=== PATIENT | female | born 1995 | race Caucasian/White ===

== ENCOUNTER 2017-03-05 13:00 | Emergency (ER) | payer BC, OTHER ==
[2017-03-05 13:12] VITALS: BP 160/78
[2017-03-05] MEDS ORDERED: Albuterol/Ipratropium 3.0-0.5 MG/3 ML Neb Soln NEB ONE (13:24)
--- NOTE | 2017-03-05 14:02 | EDM.PDOC ---
ED HPI GENERAL MEDICAL PROBLEM - General Chief Complaint: Respiratory Problem Stated Complaint: POSSIBLE PNEUMONIA Time Seen by Provider: 03/05/17 13:15 Source of Information: Reports: Patient History Limitations: Reports: No Limitations - History of Present Illness INITIAL COMMENTS - FREE TEXT/NARRATIVE: HISTORY AND PHYSICAL: History of present illness: [Comes to the emergency room complaining of 3 days of dry hacking cough and generalized malaise. She has been around others who have recently been diagnosed with pneumonia. She is concerned that she may too have pneumonia and would like to be evaluated. She denies fever, states that she has had chills. No earache sore throat or runny nose. No wheezing has been noted. She is not coughing up any sputum. Generalized fatigue and malaise. No abdominal pain, nausea or vomiting. She works as a [employer] and requests a work note for being seen in the emergency room today. Smokes regularly.] Review of systems: As per history of present illness and below otherwise all systems reviewed and negative. Past medical history: As per history of present illness and as reviewed below otherwise noncontributory. Surgical history: As per history of present illness and as reviewed below otherwise noncontributory. Social history: No reported history of drug or alcohol abuse. Family history: As per history of present illness and as reviewed below otherwise noncontributory. Physical exam: HEENT: Atraumatic, normocephalic. TMs are pearly richter and without effusion. Nares are clear. Cobblestone appearance to posterior oropharynx. No tonsillar swelling erythema or exudate. Face is nontender with palpation. Neck supple, no lymphadenopathy. Lungs: Clear to auscultation, breath sounds equal bilaterally. No wheezing, crackles or rales. Heart: S1S2, regular rate and rhythm. Abdomen: Soft, nondistended, nontender. Pelvis: Stable nontender. Genitourinary: Deferred. Rectal: Deferred. Extremities: Atraumatic. Neurovascular unremarkable. Neuro: Awake, alert, oriented. Motor and sensory unremarkable throughout. Exam nonfocal. Therapeutics: [DuoNeb] Impression: [Viral bronchitis] Plan: [Discussed with patient that her symptoms are viral in nature. Recommend rest push fluids. Robitussin or Delsym cough syrup as needed. She is given a prescription for albuterol inhaler sig 1 puff every 4-6 hours as needed for shortness of breath cough or wheezing. She is in agreement with today's plan.] Definitive disposition and diagnosis as appropriate pending reevaluation and review of above. 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 - Infectious Disease History Infectious Disease History: Reports: Chicken Pox - Past Surgical History HEENT Surgical History: Reports: Other (See Below) Other HEENT Surgeries/Procedures: wisdom tooth removed Cardiovascular Surgical History: Reports: None Respiratory Surgical History: Reports: None GI Surgical History: Reports: None Musculoskeletal Surgical History: Reports: None Social & Family History - Family History Cardiac: Reports: Hypertension, [place] Neurological: Reports: CVA Psychiatric: Reports: Anxiety, Depression, OCD, Suicide Attempt, Other (See Below) Other Psychiatric Family History: etoh and drug addictions Endocrine/Metabolic: Reports: Diabetes, type II - Tobacco Use Smoking Status *Q: Current Every Day Smoker Years of Tobacco use: 5 Packs/Tins Daily: 0.5 - Caffeine Use Caffeine Use: Reports: Coffee - Alcohol Use Days Per Week of Alcohol Use: 4 Number of Drinks Per Day: 6 Total Drinks Per Week: 24 - Recreational Drug Use Recreational Drug Use: No ED ROS GENERAL - Review of Systems Review Of Systems: ROS reveals no pertinent complaints other than HPI. ED EXAM, GENERAL - Physical Exam Exam: See Below Course - Vital Signs Last Recorded V/S: Last Vital Signs Temp 97.5 F 03/05/17 13:05 Pulse 92 03/05/17 13:05 Resp 20 03/05/17 13:05 BP 160/78 H 03/05/17 13:05 Pulse Ox 98 03/05/17 13:05 - Orders/Labs/Meds Orders: Active Orders 24 hr Category Date Time Status RT Aerosol Therapy [RC] ASDIRECTED Care 03/05/17 13:24 Active Meds: Medications Discontinued Medications Generic Name Dose Route Start Last Admin Trade Name Jese PRN Reason Stop Dose Admin Albuterol/Ipratropium 3 ml 03/05/17 13:24 03/05/17 13:28 Duoneb 3.0-0.5 Mg/3 Ml NEB 03/05/17 13:25 3 ml ONETIME ONE Administration Departure - Departure Time of Disposition: 14:15 Disposition: Home, Self-Care 01 Condition: Good Clinical Impression: Viral bronchitis - Discharge Information Instructions: Acute Bronchitis, [id number] Referrals: PCP,None [Primary Care Provider] - Forms: ED Department Discharge Additional Instructions: The following information is given to patients seen in the emergency department who are being discharged to home. This information is to outline your options for follow-up care. We provide all patients seen in our emergency department with a follow-up referral. The need for follow-up, as well as the timing and circumstances, are variable depending upon the specifics of your emergency department visit. If you don't have a primary care physician on staff, we will provide you with a referral. We always advise you to contact your personal physician following an emergency department visit to inform them of the circumstance of the visit and for follow-up with them and/or the need for any referrals to a consulting specialist. The emergency department will also refer you to a specialist when appropriate. This referral assures that you have the opportunity for follow-up care with a specialist. All of these measure are taken in an effort to provide you with optimal care, which includes your follow-up. Under all circumstances we always encourage you to contact your private physician who remains a resource for coordinating your care. When calling for follow-up care, please make the office aware that this follow-up is from your recent emergency room visit. If for any reason you are refused follow-up, please contact the [facility] emergency department at and asked to speak to the emergency department charge nurse. [facility] [address] [place] [id number] Follow-up with your primary care provider at the clinic listed above early next week. Use inhaler as instructed. Take Robitussin or Delsym as needed. Return to ER as needed as discussed. - My Orders Last 24 Hours: My Active Orders 03/05/17 13:24 RT Aerosol Therapy [RC] ASDIRECTED - Assessment/Plan Last 24 Hours: My Active Orders 03/05/17 13:24 RT Aerosol Therapy [RC] ASDIRECTED
== END 2017-03-05 14:25 | disposition home or self-care (01) ==
LOC: MW.ED 13:00
DX: J20.8 Acute bronchitis due to other specified organisms (principal); B97.89 Other viral agents as the cause of diseases classified elsewhere; F41.9 Anxiety disorder, unspecified; F17.210 Nicotine dependence, cigarettes, uncomplicated; Z79.899 Other long term (current) drug therapy; F32.9 Major depressive disorder, single episode, unspecified
CPT/HCPCS: 94664; 99283; 99283-25

== ENCOUNTER 2017-05-03 20:58 | Emergency (ER) | payer BC ==
[2017-05-03] MEDS ORDERED: Sodium Chloride 0.9% 1,000 ML IV ONE (21:21)
--- NOTE | 2017-05-03 21:28 | EDM.PDOC ---
ED HPI GENERAL MEDICAL PROBLEM - General Chief Complaint: RAG GRADER Problem Stated Complaint: PT BLEEDING Time Seen by Provider: 05/03/17 21:10 Source of Information: Reports: Patient History Limitations: Reports: No Limitations - History of Present Illness INITIAL COMMENTS - FREE TEXT/NARRATIVE: History of present illness: [21-year-old female comes in complaining of vaginal bleeding status post intercourse. Patient indicates that just a few minutes of intercourse with her customary sexual partner/with friend that she started having profuse vaginal bleeding that initially was painless but now is very crampy. Patient does not believe that she could be as she is on the control pill and she just finished her cycle approximately 2 weeks ago. Patient denies anything unusual with intercourse and any actual pain with intercourse just initially the profuse bleeding. Patient denies anything unusual with the sex, denies any instrumentation,] Review of systems: As per history of present illness and below otherwise all systems reviewed and negative. Past medical history: As per history of present illness and as reviewed below otherwise noncontributory. Surgical history: As per history of present illness and as reviewed below otherwise noncontributory. Social history: No reported history of drug or alcohol abuse. Family history: As per history of present illness and as reviewed below otherwise noncontributory. Physical exam: HEENT: Atraumatic, normocephalic, pupils reactive, negative for conjunctival pallor or scleral icterus, mucous membranes moist, throat clear, neck supple, nontender, trachea midline. Lungs: Clear to auscultation, breath sounds equal bilaterally, chest nontender. Heart: S1S2, regular, negative for clicks, rubs, or JVD. Abdomen: Soft, nondistended, nontender. Negative for masses or hepatosplenomegaly. Negative for costovertebral tenderness. Pelvis: Stable nontender. Genitourinary: Pelvic exam revealed an abraded area on the floor of the vaginal vault. Cervix was pink and shiny without any signs of laceration or bloody discharge from the os Rectal: Deferred. Extremities: Atraumatic, negative for cords or calf pain. Neurovascular unremarkable. Neuro: Awake, alert, oriented. Cranial nerves II through XII unremarkable. Cerebellum unremarkable. Motor and sensory unremarkable throughout. Exam nonfocal. Diagnostics: [CBC, CMP, UA, hCG] Therapeutics: [] Impression: [IV fluid] Plan: [Pelvic rest follow-up with RAG GRADER] Definitive disposition and diagnosis as appropriate pending reevaluation and review of above. abdomen Pain Score (Numeric/FACES): 7 - Related Data Allergies Allergy/AdvReac Type Severity Reaction Status Date / Time No Known Allergies Allergy Verified 03/05/17 13:09 Home Meds: Home Meds Sertraline [Zoloft] 100 mg PO DAILY 03/05/17 [History] Past Medical History HEENT History: Reports: None Cardiovascular History: Reports: None Respiratory History: Reports: None Gastrointestinal History: Reports: None Genitourinary History: Reports: None RAG GRADER History: Reports: None Musculoskeletal History: Reports: None Neurological History: Reports: None Psychiatric History: Reports: Anxiety, Depression, Suicide Attempt, Suicidal Ideation Endocrine/Metabolic History: Reports: None Dermatologic History: Reports: None, Other (See Below) Other Dermatologic History: scars from cutting self, right hip. - Infectious Disease History Infectious Disease History: Reports: Chicken Pox - Past Surgical History HEENT Surgical History: Reports: Other (See Below) Other HEENT Surgeries/Procedures: wisdom tooth removed Cardiovascular Surgical History: Reports: None Respiratory Surgical History: Reports: None GI Surgical History: Reports: None Musculoskeletal Surgical History: Reports: None Social & Family History - Family History Cardiac: Reports: Hypertension, [place] Neurological: Reports: CVA Psychiatric: Reports: Anxiety, Depression, OCD, Suicide Attempt, Other (See Below) Other Psychiatric Family History: etoh and drug addictions Endocrine/Metabolic: Reports: Diabetes, type II - Tobacco Use Smoking Status *Q: Current Every Day Smoker Years of Tobacco use: 5 Packs/Tins Daily: 0.5 - Caffeine Use Caffeine Use: Reports: Coffee - Alcohol Use Days Per Week of Alcohol Use: 4 Number of Drinks Per Day: 6 Total Drinks Per Week: 24 - Recreational Drug Use Recreational Drug Use: No ED ROS GENERAL - Review of Systems Review Of Systems: See Below (History of present illness) ED EXAM, GENERAL - Physical Exam Exam: See Below (History of present illness) Course - Vital Signs Last Recorded V/S: Last Vital Signs Temp 36.5 C 05/03/17 20:58 Pulse 121 H 05/03/17 20:58 Resp 18 05/03/17 20:58 BP 151/88 H 05/03/17 20:58 Pulse Ox 95 05/03/17 20:58 - Orders/Labs/Meds Labs: Laboratory Tests 05/03/17 05/03/17 05/03/17 Range/Units 21:35 21:35 21:50 WBC 7.41 (4.0-11.0) K/uL RBC 4.89 (4.30-5.90) M/uL Hgb 15.2 (12.0-16.0) g/dL Hct 44.6 (36.0-46.0) % MCV 91.2 (80.0-98.0) fL MCH 31.1 (27.0-32.0) pg MCHC 34.1 (31.0-37.0) g/dL RDW Std Deviation 47.3 (28.0-62.0) fl RDW Coeff of Sharon 14 (11.0-15.0) % Plt Count 323 (150-400) K/uL MPV 8.70 (7.40-12.00) fL Neut % (Auto) 57.9 (48.0-80.0) % Lymph % (Auto) 31.4 (16.0-40.0) % [place] % (Auto) 8.4 (0.0-15.0) % Eos % (Auto) 1.1 (0.0-7.0) % Baso % (Auto) 1.2 (0.0-1.5) % Neut # (Auto) 4.3 (1.4-5.7) K/uL Lymph # (Auto) 2.3 (0.6-2.4) K/uL [place] # (Auto) 0.6 (0.0-0.8) K/uL Eos # (Auto) 0.1 (0.0-0.7) K/uL Baso # (Auto) 0.1 (0.0-0.1) K/uL Nucleated RBC % 0.0 /100WBC Nucleated RBCs # 0 K/uL Sodium 143 (136-146) mmol/L Potassium 3.9 (3.5-5.1) mmol/L Chloride 106 (98-110) mmol/L Carbon Dioxide 24 (21-31) mmol/L BUN 8 (6.0-23.0) mg/dL Creatinine 0.6 (0.6-1.5) mg/dL Est Cr Clr Drug Dosing TNP Estimated GFR (MDRD) > 60.0 ml/min Glucose 90 (60-110) mg/dL Calcium 9.4 (8.8-10.8) mg/dL Total Bilirubin 0.3 (0.1-1.5) mg/dL AST 87 H (5-40) IU/L ALT 87 H (8-54) IU/L Alkaline Phosphatase 109 (40-150) Total Protein 7.7 (6.0-8.0) g/dL Albumin 4.3 (3.5-5.0) g/dL Globulin 3.4 (2.0-3.5) g/dL Albumin/Globulin Ratio 1.3 (1.3-2.8) HCG, Quant < 1.2 mIU/mL Urine Color YELLOW Urine Appearance HAZY Urine pH 7.5 (5.0-8.0) Ur Specific [place] 1.010 (1.001-1.035) Urine Protein NEGATIVE (NEGATIVE) mg/dL Urine Glucose (UA) NEGATIVE (NEGATIVE) mg/dL Urine Ketones NEGATIVE (NEGATIVE) mg/dL Urine Occult Blood LARGE H (NEGATIVE) Urine Nitrite NEGATIVE (NEGATIVE) Urine Bilirubin NEGATIVE (NEGATIVE) Urine Urobilinogen 0.2 (<2.0) EU/dL Ur Leukocyte Esterase NEGATIVE (NEGATIVE) Urine RBC TOO NUMBEROUS TO CT H (0-2/HPF) Urine WBC 0-1 (0-5/HPF) Ur Epithelial Cells FEW (NONE-FEW) Urine Bacteria FEW (NEGATIVE) Meds: Medications Discontinued Medications Generic Name Dose Route Start Last Admin Trade Name Freq PRN Reason Stop Dose Admin Sodium Chloride 1,000 mls @ 999 mls/hr 05/03/17 21:21 05/03/17 21:54 Normal Saline IV 05/03/17 22:21 999 mls/hr STAT ONE Administration Departure - Departure Time of Disposition: 22:36 Disposition: Home, Self-Care 01 Condition: Good Clinical Impression: Vaginal discharge - Discharge Information Referrals: PCP,None [Primary Care Provider] - Forms: ED Department Discharge Additional Instructions: The following information is given to patients seen in the emergency department who are being discharged to home. This information is to outline your options for follow-up care. We provide all patients seen in our emergency department with a follow-up referral. The need for follow-up, as well as the timing and circumstances, are variable depending upon the specifics of your emergency department visit. If you don't have a primary care physician on staff, we will provide you with a referral. We always advise you to contact your personal physician following an emergency department visit to inform them of the circumstance of the visit and for follow-up with them and/or the need for any referrals to a consulting specialist. The emergency department will also refer you to a specialist when appropriate. This referral assures that you have the opportunity for follow-up care with a specialist. All of these measure are taken in an effort to provide you with optimal care, which includes your follow-up. Under all circumstances we always encourage you to contact your private physician who remains a resource for coordinating your care. When calling for follow-up care, please make the office aware that this follow-up is from your recent emergency room visit. If for any reason you are refused follow-up, please contact the [facility] Emergency Department at and asked to speak to the emergency department charge nurse. As discussed with you your labs were within normal limits the return of signs of infection or significant blood loss of the concerning nature. As discussed treat the vaginal bleeding like a menstrual cycle for the next 3-5 days wearing a pad having pelvic rest avoid sexual activity for 7-10 days All up with a primary care provider in 2-3 days or an RAG GRADER in 5-7 Return to ED as needed as discussed
[2017-05-03 21:29] VITALS: BP 151/88
[2017-05-03 22:06] LABS: CHLORIDE,CL 106 mmol/L (98-110); SODIUM,NA 143 mmol/L (136-146)
== END 2017-05-03 22:52 | disposition home or self-care (01) ==
LOC: MW.ED 20:58
DX: N89.8 Other specified noninflammatory disorders of vagina (principal); F17.210 Nicotine dependence, cigarettes, uncomplicated; Z79.899 Other long term (current) drug therapy
CPT/HCPCS: 36415; 80053; 81001; 84702; 85025; 96360; 99284; J7040

== ENCOUNTER 2019-01-16 23:46 | Emergency (ER) | payer BC, OTHER ==
--- NOTE | 2019-01-17 00:22 | EDM.PDOC ---
<Lonny Sam - Last Filed: 01/17/19 00:36> ED HPI GENERAL MEDICAL PROBLEM - General Chief Complaint: Headache Stated Complaint: PT HAS MIGRAINE Time Seen by Provider: 01/16/19 23:55 - History of Present Illness INITIAL COMMENTS - FREE TEXT/NARRATIVE: HISTORY AND PHYSICAL: History of present illness: 23-year-old female with a past history of migraine headaches presents to the emergency department this evening for the evaluation of a new migraine headache. The patient first developed her symptoms 5 hours ago in which she describes as a 7/10 sharp constant pain to her forehead. She has attempted the over the counter Excedrin without relief. The patient reports photophobia & nausea but denies vomiting. Furthermore the patient denies systemic illness such as fevers chills or night sweats. Patient has had no recent trauma. Per patient report, she requires at least 3 visits per year to the emergency department for the treatment of migraine headache. She currently does not have a primary care provider nor is she on any preventative or abortive migraine therapy. Review of systems: As per history of present illness and below otherwise all systems reviewed and negative. Past medical history: As per history of present illness and as reviewed below otherwise noncontributory. Surgical history: As per history of present illness and as reviewed below otherwise noncontributory. Social history: No reported history of drug or alcohol abuse. Family history: As per history of present illness and as reviewed below otherwise noncontributory. Physical exam: Constitutional: Well-developed and well-nourished, nontoxic-appearing HEENT: Atraumatic, normocephalic, pupils reactive, negative for conjunctival pallor or scleral icterus, mucous membranes moist, throat clear, neck supple, nontender, trachea midline. Lungs: Clear to auscultation, breath sounds equal bilaterally, chest nontender. Heart: S1S2, regular, negative for clicks, rubs, or JVD. Abdomen: Soft, nondistended, nontender. Negative for masses or hepatosplenomegaly. Negative for costovertebral tenderness. Pelvis: Deferred. Genitourinary: Deferred. Rectal: Deferred. Extremities: Atraumatic, negative for cords or calf pain. Neurovascular unremarkable. Neuro: Awake, alert, oriented. Cranial nerves II through XII unremarkable. Cerebellum unremarkable. Motor and sensory unremarkable throughout. Exam nonfocal. Diagnostics: None Therapeutics: 1L 0.9 NS 6 mg sumatriptan subcutaneous Zofran Impression: Migraine Headache Plan: The patients symptoms improved with the above therapeutics. She will be discharged home and is to establish care with PCP. The patient is in agreement to the plan of care, her questions were answered. Definitive disposition and diagnosis as appropriate pending reevaluation and review of above. 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 - Infectious Disease History Infectious Disease History: Reports: Chicken Pox - Past Surgical History HEENT Surgical History: Reports: Oral Surgery, Tonsillectomy, Other (See Below) Other HEENT Surgeries/Procedures: wisdom tooth removed Cardiovascular Surgical History: Reports: None Respiratory Surgical History: Reports: None GI Surgical History: Reports: None Musculoskeletal Surgical History: Reports: None Social & Family History - Family History Family Medical History: Noncontributory Cardiac: Reports: Hypertension, [place] Neurological: Reports: CVA Psychiatric: Reports: Anxiety, Depression, OCD, Suicide Attempt, Other (See Below) Other Psychiatric Family History: etoh and drug addictions Endocrine/Metabolic: Reports: Diabetes, type II - Tobacco Use Smoking Status *Q: Never Smoker - Caffeine Use Caffeine Use: Reports: Coffee - Recreational Drug Use Recreational Drug Use: No Course - Vital Signs Last Recorded V/S: Last Vital Signs Temp 36.2 C 01/16/19 23:50 Pulse 61 01/17/19 01:23 Resp 15 01/17/19 01:23 BP 131/88 01/17/19 01:23 Pulse Ox 99 01/17/19 01:23 - Orders/Labs/Meds Meds: Medications Discontinued Medications Generic Name Dose Route Start Last Admin Trade Name Jese PRN Reason Stop Dose Admin Sodium Chloride 1,000 mls @ 999 mls/hr 01/17/19 00:30 01/17/19 00:23 Normal Saline IV 999 mls/hr ASDIRECTED NARCISA Administration Sumatriptan Succinate 6 mg 01/17/19 00:29 01/17/19 00:34 Imitrex SUBCUT 01/17/19 00:30 6 mg ONETIME ONE Administration Departure - Departure Disposition: Home, Self-Care 01 Clinical Impression: Migraine - Discharge Information Instructions: Recurrent Migraine Headache, [id number] Referrals: PCP,None [Primary Care Provider] - Forms: ED Department Discharge Additional Instructions: The following information is given to patients seen in the emergency department who are being discharged to home. This information is to outline your options for follow-up care. We provide all patients seen in our emergency department with a follow-up referral. The need for follow-up, as well as the timing and circumstances, are variable depending upon the specifics of your emergency department visit. If you don't have a primary care physician on staff, we will provide you with a referral. We always advise you to contact your personal physician following an emergency department visit to inform them of the circumstance of the visit and for follow-up with them and/or the need for any referrals to a consulting specialist. The emergency department will also refer you to a specialist when appropriate. This referral assures that you have the opportunity for followup care with a specialist. All of these measure are taken in an effort to provide you with optimal care, which includes your followup. Under all circumstances we always encourage you to contact your private physician who remains a resource for coordinating your care. When calling for followup care, please make the office aware that this follow-up is from your recent emergency room visit. If for any reason you are refused follow-up, please contact the [facility] emergency department at and asked to speak to the emergency department charge nurse. [facility] [address] [place] [id number] Follow-up primary care call to schedule appointment above return as needed as discussed <Luís Ward - Last Filed: 01/17/19 06:26> ED ROS GENERAL - Review of Systems Review Of Systems: ROS reveals no pertinent complaints other than HPI. - Physical Exam Exam: See Below Course - Vital Signs Text/Narrative:: History and physical as below patient's emergency department course has been unremarkable she has improvement status post IV fluid Zofran and sumatriptan she 'll be discharged home with diagnosis of migraine headache she is to secure follow-up with primary care physician return as needed as discussed Departure - Departure Time of Disposition: 00:49 Condition: Good
[2019-01-17] MEDS ORDERED: SUMAtriptan 6 MG/0.5 ML SDV SUBCUT ONE (00:29)
[2019-01-17] MEDS ORDERED: Sodium Chloride 0.9% 1,000 ML IV SCH (00:30)
[2019-01-17 01:46] VITALS: BP 131/88; PULSE 61
== END 2019-01-17 01:24 | disposition home or self-care (01) ==
LOC: MW.ED 23:46
DX: G43.909 Migraine, unspecified, not intractable, without status migrainosus (principal); F41.9 Anxiety disorder, unspecified; F32.9 Major depressive disorder, single episode, unspecified; Z79.899 Other long term (current) drug therapy
CPT/HCPCS: 96360; 96372; 99283; J3030; J7040

== ENCOUNTER 2019-03-13 12:32 | Emergency (ER) | payer BC, OTHER ==
--- NOTE | 2019-03-13 14:06 | EDM.PDOC ---
ED HPI GENERAL MEDICAL PROBLEM - General Chief Complaint: General Stated Complaint: VOMITING, CHEST COLD Time Seen by Provider: 03/13/19 12:51 Source of Information: Reports: Patient History Limitations: Reports: No Limitations - History of Present Illness INITIAL COMMENTS - FREE TEXT/NARRATIVE: Presents reporting a three-day history of shortness of breath with chest pain, fevers, sore throat, runny nose, headache, nausea, cough and body aches. 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 She is on reliable control. Chest Pain Score (Numeric/FACES): 6 - Related Data Allergies Allergy/AdvReac Type Severity Reaction Status Date / Time No Known Allergies Allergy Verified 01/16/19 23:58 Home Meds: Home Meds Sertraline [Zoloft] 50 mg PO DAILY 03/05/17 [History] Codeine Phosphate/Guaifenesin [Guaifen-Codeine 100-10 mg/5 ml] 10 ml PO Q6HR PRN #240 liquid 03/13/19 [Rx] Diclofenac Sodium [Voltaren] 75 mg PO BIDMEALS #14 tab.ec 03/13/19 [Rx] Levonorgestrel-Ethin Estradiol [Marlissa-28 Tablet] 1 each PO DAILY 03/13/19 [ History] Past Medical History HEENT History: Reports: None Cardiovascular History: Reports: None Respiratory History: Reports: None Gastrointestinal History: Reports: None Genitourinary History: Reports: None 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 - Infectious Disease History Infectious Disease History: Reports: Chicken Pox, Shingles - Past Surgical History Head Surgeries/Procedures: Reports: None HEENT Surgical History: Reports: Oral Surgery, Tonsillectomy, Other (See Below) Other HEENT Surgeries/Procedures: wisdom tooth removed Cardiovascular Surgical History: Reports: None Respiratory Surgical History: Reports: None GI Surgical History: Reports: None Musculoskeletal Surgical History: Reports: None Social & Family History - Family History Family Medical History: Noncontributory Cardiac: Reports: Hypertension, [place] Neurological: Reports: CVA Psychiatric: Reports: Anxiety, Depression, OCD, Suicide Attempt, Other (See Below) Other Psychiatric Family History: etoh and drug addictions Endocrine/Metabolic: Reports: Diabetes, type II - Tobacco Use Smoking Status *Q: Current Every Day Smoker Years of Tobacco use: 5 Packs/Tins Daily: 0.2 - Caffeine Use Caffeine Use: Reports: Coffee - Recreational Drug Use Recreational Drug Use: No ED ROS GENERAL - Review of Systems Review Of Systems: ROS reveals no pertinent complaints other than HPI. ED EXAM, GENERAL - Physical Exam Exam: See Below Exam Limited By: No Limitations General Appearance: Alert, No Apparent Distress Ears: Normal External Exam, Normal Canal, Normal TMs Nose: Normal Inspection Throat/Mouth: Normal Inspection, Normal Oropharynx Head: Atraumatic, Normocephalic Neck: Normal Inspection, Supple. No: Lymphadenopathy (L), Lymphadenopathy (R) Respiratory/Chest: No Respiratory Distress, Lungs Clear, Normal Breath Sounds Cardiovascular: Normal Peripheral Pulses, Regular Rate, Rhythm, No Murmur Back Exam: Normal Inspection Extremities: Normal Inspection Neurological: Alert, Oriented Psychiatric: Normal Affect, Normal Mood Skin Exam: Warm, Dry, Intact, Normal Color, No Rash Lymphatic: No Adenopathy Course - Vital Signs Last Recorded V/S: Last Vital Signs Temp 36.6 C 03/13/19 12:41 Pulse 70 03/13/19 12:41 Resp BP 134/69 03/13/19 12:41 Pulse Ox 97 03/13/19 12:41 - Orders/Labs/Meds Orders: Active Orders 24 hr Category Date Time Status INFLUENZA A+B AG SCREEN [RM] Stat Lab 03/13/19 13:13 Received Departure - Departure Time of Disposition: 14:06 Disposition: Home, Self-Care 01 Condition: Good Clinical Impression: URI (upper respiratory infection) Qualifiers: URI type: unspecified viral URI Qualified Code(s): J06.9 - Acute upper respiratory infection, unspecified - Discharge Information Referrals: PCP,Unknown [Primary Care Provider] - Additional Instructions: The following information is given to patients seen in the emergency department who are being discharged to home. This information is to outline your options for follow-up care. We provide all patients seen in our emergency department with a follow-up referral. The need for follow-up, as well as the timing and circumstances, are variable depending upon the specifics of your emergency department visit. If you don't have a primary care physician on staff, we will provide you with a referral. We always advise you to contact your personal physician following an emergency department visit to inform them of the circumstance of the visit and for follow-up with them and/or the need for any referrals to a consulting specialist. The emergency department will also refer you to a specialist when appropriate. This referral assures that you have the opportunity for follow-up care with a specialist. All of these measure are taken in an effort to provide you with optimal care, which includes your follow-up. Under all circumstances we always encourage you to contact your private physician who remains a resource for coordinating your care. When calling for follow-up care, please make the office aware that this follow-up is from your recent emergency room visit. If for any reason you are refused follow-up, please contact the [facility] Emergency Department at and asked to speak to the emergency department charge nurse. [facility] [address] [place] [address] 1. Diclofenac twice daily 2. Cough syrup 2 teaspoons every 4-6 hours as needed for cough with driving precautions 3. No work 2 days - My Orders Last 24 Hours: My Active Orders 03/13/19 13:13 INFLUENZA A+B AG SCREEN [RM] Stat - Assessment/Plan Last 24 Hours: My Active Orders 03/13/19 13:13 INFLUENZA A+B AG SCREEN [RM] Stat
[2019-03-13 14:28] VITALS: BP 119/75; PULSE 71
== END 2019-03-13 14:28 | disposition home or self-care (01) ==
LOC: MW.ED 12:32
DX: J06.9 Acute upper respiratory infection, unspecified (principal); F41.9 Anxiety disorder, unspecified; F32.9 Major depressive disorder, single episode, unspecified; F17.210 Nicotine dependence, cigarettes, uncomplicated; Z79.899 Other long term (current) drug therapy
CPT/HCPCS: 87804; 99283

== ENCOUNTER 2019-09-18 20:22 | Emergency (ER) | payer OTHER ==
--- NOTE | 2019-09-18 20:52 | EDM.PDOC ---
ED HPI GENERAL MEDICAL PROBLEM - General Chief Complaint: General Stated Complaint: TROUBLE BREATHING,CHEST PAIN,SORE THROAT Time Seen by Provider: 09/18/19 20:50 Source of Information: Reports: Patient History Limitations: Reports: No Limitations - History of Present Illness INITIAL COMMENTS - FREE TEXT/NARRATIVE: Patient is a 23-year-old female with past medical history of anxiety and depression presenting with a chief complaint of palpitations and shortness of breath. Patient states that she was just in [place] for the same symptoms and states that she saw the emergency room doctor had a swab and was sent home. This happened approximately several hours prior to arrival and she feels like not enough is been done to address her concerns. Patient is extremely concerned that she has the coronavirus and that she could be dying. Patient states that she has had several exposures to people with the coronavirus. Patient notes that the symptoms have been ongoing for the past 6 months and have been occurring intermittently. Patient states her symptoms have worsened over the past few days. The symptoms have corresponded with increased fear about the coronavirus. Patient reports recent admission to psychiatric facility on on August 29. She states she was discharged after 5 days and has not given any medications. Pmhx: Anxiety and depression Pshx: None Family Hx: noncontributory Smoking history? Yes Etoh use? none Drug use? none In addition to that documented in the HPI above, the additional ROS was obtained : Constitutional: Denies fevers or chills Eyes: Denies vision changes ENMT: Denies sore throat CV: Denies chest pain Resp: Per HPI GI: Denies vomiting or diarrhea : Denies painful urination MSK: Denies recent trauma Skin: Denies new rashes Neuro: Denies new numbness or tingling or weakness Endocrine: Denies unexpected weight loss Heme: Denies bleeding disorders Psych: No suicidal ideations or homicidal ideations. Not hearing voices. I have reviewed the triage vital signs Const: Well nourished, well developed, appears stated age Eyes: PERRL, no conjunctival injection HENT: NCAT, Neck supple without meningismus CV: Tachycardic but regular rate, Warm, well-perfused extremities RESP: CTAB, Unlabored respiratory effort GI: soft, non-tender, non-distended, no masses MSK: No gross deformities appreciated Skin: Warm, dry. No rashes Neuro: Alert, stand in II-XII grossly intact. Sensation and motor function of extremities grossly intact. Psych: Patient is demonstrating anxious mood and rapid speech. No evidence of preoccupation. Assessment and plan: Patient is a 23-year-old female with concerns about having the coronavirus. Patient is demonstrating obvious anxiety and slight paranoia regarding the coronavirus but does not demonstrate any medical abnormalities. Tachycardia is noted but does not demonstrate any arrhythmias or any significant ischemic changes. Broad differential diagnosis considered including pneumonia, myocarditis, panic disorder, pulmonary embolism. Chest x-ray is clear and patient is saturating well on room air without any tachypnea. Pneumonia is very low likelihood in this patient. Myocarditis is also not very likely given the patient's symptoms, physical exam and otherwise normal findings. Pulmonary embolism is low likelihood given the chronicity of symptoms of 6 months. Patient only has isolated tachycardia which correspond with the patient's level of anxiety and psychiatric disposition. Patient appears that she requires outpatient psychiatric care and would likely benefit from behavioral therapy as well as potential antianxiety medications. Patient educated on normal findings and she states she is extremely grateful and feels much better and will like to go home. I do not suspect that the patient is requiring inpatient psychiatric admission at this time. All questions were addressed and answered. Patient agrees with plan. 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 - Infectious Disease History Infectious Disease History: Reports: None - Past Surgical History Head Surgeries/Procedures: Reports: None HEENT Surgical History: Reports: Oral Surgery, Tonsillectomy, Other (See Below) Cardiovascular Surgical History: Reports: None Respiratory Surgical History: Reports: None GI Surgical History: Reports: None Musculoskeletal Surgical History: Reports: None Social & Family History - Family History Family Medical History: Noncontributory Cardiac: Reports: Hypertension, [place] Neurological: Reports: CVA Psychiatric: Reports: Anxiety, Depression, OCD, Suicide Attempt, Other (See Below) Other Psychiatric Family History: etoh and drug addictions Endocrine/Metabolic: Reports: Diabetes, type II - Tobacco Use Smoking Status *Q: Current Every Day Smoker Years of Tobacco use: 4 Packs/Tins Daily: 0.5 - Caffeine Use Caffeine Use: Reports: None - Recreational Drug Use Recreational Drug Use: No ED ROS GENERAL - Review of Systems Review Of Systems: See Below ED EXAM, GENERAL - Physical Exam Exam: See Below Course - Vital Signs Last Recorded V/S: Last Vital Signs Temp 36.6 C 09/18/19 20:31 Pulse 118 H 09/18/19 21:45 Resp 20 09/18/19 21:45 BP 146/96 H 09/18/19 21:45 Pulse Ox 99 09/18/19 21:45 - Orders/Labs/Meds Orders: Active Orders 24 hr Category Date Time Status EKG Documentation Completion [RC] STAT Care 09/18/19 20:48 Active Labs: Laboratory Tests 09/18/19 09/18/19 09/18/19 Range/Units 20:56 20:56 20:56 WBC 11.19 H (4.0-11.0) K/uL RBC 5.13 (4.30-5.90) M/uL Hgb 15.2 (12.0-16.0) g/dL Hct 44.4 (36.0-46.0) % MCV 86.5 (80.0-98.0) fL MCH 29.6 (27.0-32.0) pg MCHC 34.2 (31.0-37.0) g/dL RDW Std Deviation 42.1 (28.0-62.0) fl RDW Coeff of Sharon 13 (11.0-15.0) % Plt Count 368 (150-400) K/uL MPV 9.30 (7.40-12.00) fL Neut % (Auto) 61.7 (48.0-80.0) % Lymph % (Auto) 25.5 (16.0-40.0) % Wilkes % (Auto) 11.7 (0.0-15.0) % Eos % (Auto) 0.6 (0.0-7.0) % Baso % (Auto) 0.5 (0.0-1.5) % Neut # (Auto) 6.9 H (1.4-5.7) K/uL Lymph # (Auto) 2.9 H (0.6-2.4) K/uL Wilkes # (Auto) 1.3 H (0.0-0.8) K/uL Eos # (Auto) 0.1 (0.0-0.7) K/uL Baso # (Auto) 0.1 (0.0-0.1) K/uL Nucleated RBC % 0.0 /100WBC Nucleated RBCs # 0 K/uL INR 1.10 Sodium 141 (136-145) mmol/L Potassium 3.2 L (3.5-5.1) mmol/L Chloride 103 (98-107) mmol/L Carbon Dioxide 24.9 (21.0-32.0) mmol/L BUN 10 (7.0-18.0) mg/dL Creatinine 0.8 (0.6-1.0) mg/dL Est Cr Clr Drug Dosing 114.30 mL/min Estimated GFR (MDRD) > 60.0 ml/min Glucose 129 H (74-106) mg/dL Calcium 9.1 (8.5-10.1) mg/dL Total Bilirubin 0.4 (0.2-1.0) mg/dL AST 27 (15-37) IU/L ALT 33 (14-63) IU/L Alkaline Phosphatase 68 (46-116) U/L Total Protein 7.1 (6.4-8.2) g/dL Albumin 4.1 (3.4-5.0) g/dL Globulin 3.0 (2.6-4.0) g/dL Albumin/Globulin Ratio 1.4 (0.9-1.6) HCG, Qual (NEG) 09/18/19 Range/Units 20:56 WBC (4.0-11.0) K/uL RBC (4.30-5.90) M/uL Hgb (12.0-16.0) g/dL Hct (36.0-46.0) % MCV (80.0-98.0) fL MCH (27.0-32.0) pg MCHC (31.0-37.0) g/dL RDW Std Deviation (28.0-62.0) fl RDW Coeff of Sharon (11.0-15.0) % Plt Count (150-400) K/uL MPV (7.40-12.00) fL Neut % (Auto) (48.0-80.0) % Lymph % (Auto) (16.0-40.0) % Wilkes % (Auto) (0.0-15.0) % Eos % (Auto) (0.0-7.0) % Baso % (Auto) (0.0-1.5) % Neut # (Auto) (1.4-5.7) K/uL Lymph # (Auto) (0.6-2.4) K/uL Wilkes # (Auto) (0.0-0.8) K/uL Eos # (Auto) (0.0-0.7) K/uL Baso # (Auto) (0.0-0.1) K/uL Nucleated RBC % /100WBC Nucleated RBCs # K/uL INR Sodium (136-145) mmol/L Potassium (3.5-5.1) mmol/L Chloride (98-107) mmol/L Carbon Dioxide (21.0-32.0) mmol/L BUN (7.0-18.0) mg/dL Creatinine (0.6-1.0) mg/dL Est Cr Clr Drug Dosing mL/min Estimated GFR (MDRD) ml/min Glucose (74-106) mg/dL Calcium (8.5-10.1) mg/dL Total Bilirubin (0.2-1.0) mg/dL AST (15-37) IU/L ALT (14-63) IU/L Alkaline Phosphatase (46-116) U/L Total Protein (6.4-8.2) g/dL Albumin (3.4-5.0) g/dL Globulin (2.6-4.0) g/dL Albumin/Globulin Ratio (0.9-1.6) HCG, Qual NEGATIVE (NEG) Meds: Medications Discontinued Medications Generic Name Dose Route Start Last Admin Trade Name Jese PRN Reason Stop Dose Admin Potassium Chloride 40 meq 09/18/19 21:32 09/18/19 21:47 Potassium Chloride PO 09/18/19 21:33 40 meq ONETIME ONE Administration Departure - Departure Time of Disposition: 21:55 Disposition: Home, Self-Care 01 Clinical Impression: URI (upper respiratory infection) Qualifiers: URI type: unspecified viral URI Qualified Code(s): J06.9 - Acute upper respiratory infection, unspecified - Discharge Information Instructions: Upper Respiratory Infection, Adult, [id number] Referrals: PCP,Not In Area [Primary Care Provider] - Forms: ED Department Discharge Additional Instructions: The following information is given to patients seen in the emergency department who are being discharged to home. This information is to outline your options for follow-up care. We provide all patients seen in our emergency department with a follow-up referral. The need for follow-up, as well as the timing and circumstances, are variable depending upon the specifics of your emergency department visit. If you don't have a primary care physician on staff, we will provide you with a referral. We always advise you to contact your personal physician following an emergency department visit to inform them of the circumstance of the visit and for follow-up with them and/or the need for any referrals to a consulting specialist. The emergency department will also refer you to a specialist when appropriate. This referral assures that you have the opportunity for follow-up care with a specialist. All of these measure are taken in an effort to provide you with optimal care, which includes your follow-up. Under all circumstances we always encourage you to contact your private physician who remains a resource for coordinating your care. When calling for follow-up care, please make the office aware that this follow-up is from your recent emergency room visit. If for any reason you are refused follow-up, please contact the [facility] Emergency Department at and asked to speak to the emergency department charge nurse. Sepsis Event Note - Evaluation Sepsis Screening Result: No Definite Risk - Focused Exam Vital Signs: Vital Signs Temp Pulse Resp BP Pulse Ox 09/18/19 21:45 118 H 20 146/96 H 99 09/18/19 20:31 36.6 C 148 H 20 167/104 H 97 Date Exam was Performed: 09/18/19 Time Exam was Performed: 21:55 - My Orders Last 24 Hours: My Active Orders 09/18/19 20:48 EKG Documentation Completion [RC] STAT - Assessment/Plan Last 24 Hours: My Active Orders 09/18/19 20:48 EKG Documentation Completion [RC] STAT
[2019-09-18 21:25] LABS: BLOOD UREA NITROGEN,BUN 10 mg/dL (7.0-18.0); CARBON DIOXIDE,CO2 24.9 mmol/L (21.0-32.0); CHLORIDE,CL 103 mmol/L (98-107); GLUCOSE RANDOM 129 mg/dL (74-106); POTASSIUM,K 3.2 mmol/L (3.5-5.1); SODIUM,NA 141 mmol/L (136-145)
[2019-09-18] MEDS ORDERED: Potassium Chloride 10% 20 MEQ/15 ML Soln 30 ML UD Cup PO ONE (21:32)
--- NOTE | 2019-09-18 21:43 | CR ---
Chest: Frontal view of the chest was obtained utilizing portable technique. Comparison: No previous chest x-ray. Heart size and mediastinum are normal. Lungs are clear with no acute parenchymal change. Mild scoliosis is seen within the spine. Impression: 1. Nothing acute is appreciated on portable chest x-ray. Diagnostic code #2 Study was dictated in MDT
[2019-09-18 22:16] VITALS: BP 169/97; PULSE 119
== END 2019-09-18 22:16 | disposition home or self-care (01) ==
LOC: MW.ED 20:22
DX: J06.9 Acute upper respiratory infection, unspecified (principal); F17.210 Nicotine dependence, cigarettes, uncomplicated
CPT/HCPCS: 36415; 71045; 71045-26; 80053; 84703; 85025; 85610; 93005; 99283; 99285-25; A9270-GY

== ENCOUNTER 2019-09-21 16:23 | Emergency (ER) | payer OTHER ==
[2019-09-21] MEDS ORDERED: diphenhydrAMINE 50 MG/ML SDV IM ONE (16:54)
[2019-09-21] MEDS ORDERED: LORazepam 2 MG/ML SDV IM ONE (16:55)
[2019-09-21] MEDS ORDERED: Haloperidol Lactate 5 MG/ML SDV IM ONE (16:55)
[2019-09-21 18:02] VITALS: BP 146/92; PULSE 122
--- NOTE | 2019-09-21 18:20 | EDM.PDOCBH ---
ED HPI GENERAL MEDICAL PROBLEM - General Chief Complaint: Behavioral/Psych Stated Complaint: MED CLEARANCE Time Seen by Provider: 09/21/19 16:26 Source of Information: Reports: Patient, Police History Limitations: Reports: No Limitations - History of Present Illness INITIAL COMMENTS - FREE TEXT/NARRATIVE: This 23 year old female is admitted to the ED after a court order to be admitted to a Psych facility in [place]. She was sent here for medical clearance. The patient is very agitated. She has pressure of speech and flight of ideas. She feels that she is God and that she is a "super human" with special machado. Onset: Gradual - Related Data Allergies Allergy/AdvReac Type Severity Reaction Status Date / Time No Known Allergies Allergy Verified 09/21/19 17:34 Home Meds: Home Meds Levonorgestrel-Ethin Estradiol [Marlissa-28 Tablet] 1 each PO DAILY 03/13/19 [ History] Past Medical History HEENT History: Reports: None Cardiovascular History: Reports: None Respiratory History: Reports: None Gastrointestinal History: Reports: None Genitourinary History: Reports: None CRITICAL CARE CLINICAL NURSE SPECIALIST History: Reports: None Musculoskeletal History: Reports: None Neurological History: Reports: None Psychiatric History: Reports: Anxiety, Depression, Suicide Attempt, Suicidal Ideation, Other (See Below) Other Psychiatric History: self harm (cutting) Endocrine/Metabolic History: Reports: None Insulin Pump Model and Ticker Wirer: None Hematologic History: Reports: None Immunologic History: Reports: None Oncologic (Cancer) History: Reports: None Dermatologic History: Reports: None, Other (See Below) Other Dermatologic History: scars from cutting self, right hip. - Infectious Disease History Infectious Disease History: Reports: None - Past Surgical History Head Surgeries/Procedures: Reports: None HEENT Surgical History: Reports: Oral Surgery, Tonsillectomy, Other (See Below) Cardiovascular Surgical History: Reports: None Respiratory Surgical History: Reports: None GI Surgical History: Reports: None Musculoskeletal Surgical History: Reports: None Social & Family History - Family History Family Medical History: Noncontributory Cardiac: Reports: Hypertension, [place] Neurological: Reports: CVA Psychiatric: Reports: Anxiety, Depression, OCD, Suicide Attempt, Other (See Below) Other Psychiatric Family History: etoh and drug addictions Endocrine/Metabolic: Reports: Diabetes, type II - Caffeine Use Caffeine Use: Reports: None ED ROS GENERAL - Review of Systems Review Of Systems: See Below Constitutional: Reports: No Symptoms HEENT: Reports: No Symptoms Respiratory: Reports: No Symptoms Cardiovascular: Reports: No Symptoms Endocrine: Reports: No Symptoms GI/Abdominal: Reports: No Symptoms : Reports: No Symptoms Musculoskeletal: Reports: No Symptoms Skin: Reports: No Symptoms Neurological: Reports: No Symptoms Psychiatric: Reports: Agitation, Other (flight of ideas and pressure of speech) ED EXAM, BEHAVIORAL HEALTH - Physical Exam Exam: See Below Exam Limited By: No Limitations General Appearance: Alert, WD/WN, No Apparent Distress, Other (the patient had to be sedated with Haldol, Benadryl and Ativan in order to be fully examined. She was very combative in the ED using curse words to the staff and the police officers.) Eye Exam: Bilateral Eye: EOMI, Normal Fundi, Normal Inspection, PERRL (4.5mm) Ears: Normal External Exam, Normal Canal, Hearing Grossly Normal, Normal TMs Nose: Normal Inspection, Normal Mucosa, No Blood Throat/Mouth: Normal Inspection, Normal Oropharynx Head: Atraumatic, Normocephalic Neck: Normal Inspection, Supple, Non-Tender, Full Range of Motion Respiratory/Chest: No Respiratory Distress, Lungs Clear, Normal Breath Sounds, Chest Non-Tender Cardiovascular: Normal Peripheral Pulses, No Edema, No Gallop, No JVD, No Murmur , No Rub, Tachycardia GI/Abdominal: Normal Bowel Sounds, Soft, Non-Tender, No Organomegaly, No Distention, No Abnormal Bruit, No Mass (Female) Exam: Deferred Rectal (Female) Exam: Deferred Back Exam: Normal Inspection Extremities: Normal Inspection, Normal Range of Motion. No: Rosi's Sign Neurological: Alert, CN II-XII Intact, Normal Reflexes, No Motor/Sensory Deficits, Oriented x 3 Psychiatric: Restless, Agitated, Uncooperative (until she received medications) , Grandiose Thoughts, Pressured Speech, Paranoid Thoughts, Threatening Behavior Skin Exam: Warm, Dry, Intact, Normal color, No rash. No: Needle patton COURSE, BEHAVIORAL HEALTH COMP - Course Vital Signs: Last Vital Signs Temp Pulse 122 H 09/21/19 18:01 Resp 16 09/21/19 18:01 BP 146/92 H 09/21/19 18:01 Pulse Ox 100 09/21/19 18:01 Orders, Labs, Meds: Medications Discontinued Medications Generic Name Dose Route Start Last Admin Trade Name Jese PRN Reason Stop Dose Admin Diphenhydramine HCl 50 mg 09/21/19 16:54 09/21/19 17:01 Benadryl IM 09/21/19 16:55 50 mg ONETIME ONE Administration Haloperidol Lactate 5 mg 09/21/19 16:55 09/21/19 17:01 Haldol IM 09/21/19 16:56 5 mg ONETIME ONE Administration Lorazepam 2 mg 09/21/19 16:55 09/21/19 17:01 Ativan IM 09/21/19 16:56 2 mg ONETIME ONE Administration Medical Clearance: 09/21/19 18:20 The patient once sedated with Haldol 5mg, Ativan 2mg and Benadryl 50mg she calmed down and we were able to examine her and medically clear her. She has been released to law enforcement to be taken to [facility] facility. 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 The following information is given to patients seen in the emergency department who are being discharged to home. This information is to outline your options for follow-up care. We provide all patients seen in our emergency department with a follow-up referral. The need for follow-up, as well as the timing and circumstances, are variable depending upon the specifics of your emergency department visit. If you don't have a primary care physician on staff, we will provide you with a referral. We always advise you to contact your personal physician following an emergency department visit to inform them of the circumstance of the visit and for follow-up with them and/or the need for any referrals to a consulting specialist. The emergency department will also refer you to a specialist when appropriate. This referral assures that you have the opportunity for follow-up care with a specialist. All of these measure are taken in an effort to provide you with optimal care, which includes your follow-up. Under all circumstances we always encourage you to contact your private physician who remains a resource for coordinating your care. When calling for follow-up care, please make the office aware that this follow-up is from your recent emergency room visit. If for any reason you are refused follow-up, please contact the [facility] Emergency Department at and asked to speak to the emergency department charge nurse. Sepsis Event Note - Evaluation Sepsis Screening Result: No Definite Risk - Focused Exam Vital Signs: Vital Signs Pulse Resp BP Pulse Ox 09/21/19 18:01 122 H 16 146/92 H 100 Date Exam was Performed: 09/21/19 Time Exam was Performed: 18:29
== END 2019-09-21 19:10 ==
LOC: MW.ED 16:23
DX: F23 Brief psychotic disorder (principal)
CPT/HCPCS: 96372; 99283; 99284; J1200; J1630; J2060